=== PATIENT | male | born 1990 | race Two or more races ===

== ENCOUNTER 2018-05-06 16:35 | Emergency (ER) | payer MEDICAID ==
[~2018-05-06] VITALS: Ht 167.6 cm; Wt 77.1 kg
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
[2018-05-06] MEDS ORDERED: Ketorolac 30mg Inj IM ONE (17:00)
[2018-05-06] MEDS ORDERED: IBUPROFEN600 MG ORAL (17:51)
[2018-05-06 19:08] VITALS: BP 124/78
--- NOTE | 2018-05-07 10:51 | Diagnostic Imaging Report ---
Indication: Ankle pain Technique: 3 views of the left ankle Comparison: none Findings: No acute fractures. No dislocations. The joint spaces are preserved. Impression: Negative
== END 2018-05-06 19:09 | disposition home or self-care (01) ==
LOC: EMR 18:41
DX: S93.402A Sprain of unspecified ligament of left ankle, initial encounter (principal); X50.1XXA Overexertion from prolonged static or awkward postures, initial encounter; Y92.89 Other specified places as the place of occurrence of the external cause
CPT/HCPCS: 29515; 73610; 96372; 99284; J1885